=== PATIENT | female | born 2000 | race Caucasian/White ===

== ENCOUNTER 2023-08-03 03:39 | Emergency (ER) | payer OTHER ==
[2023-08-03] MEDS ORDERED: SODIUM CHLORIDE 0.9% IVPB SCH (05:15)
[2023-08-03] MEDS ORDERED: Lactated Ringer's 1,000 ML IV SCH ×2 (05:15→08:15)
[2023-08-03] MEDS ORDERED: DOXYCYCLINE IVPB SCH (05:15)
[2023-08-03] MEDS ORDERED: PROPOFOL 20 ML ONE (05:29)
[2023-08-03] MEDS ORDERED: Midazolam HCl 2 mg/2 ml Vial ONE (05:29)
[2023-08-03] MEDS ORDERED: fentaNYL 50 mcg/mL 1 mL Vial ONE (05:29)
[2023-08-03] MEDS ORDERED: SUCCINYLCHOLINE/SOD CL,ISO/PF 200 MG/10 ML SYRINGE FS ONE (05:31)
[2023-08-03] MEDS ORDERED: Dexamethasone 4 mg/ml Vial ONE (05:31)
[2023-08-03] MEDS ORDERED: Ondansetron PF 4 MG/2 ML Vial ONE (05:31)
[2023-08-03] MEDS ORDERED: Lidocaine 1% PF 5 ML VIAL ONE (05:31)
[2023-08-03] MEDS ORDERED: Rocuronium Bromide 10 MG/ML (10ML VIAL) ONE (05:32)
[2023-08-03] MEDS ORDERED: SUGAMMADEX SODIUM 200 MG/2 ML VIAL ONE (05:32)
[2023-08-03] MEDS ORDERED: Misoprostol 200 MCG TAB ONE (06:15)
[2023-08-03] MEDS ORDERED: Tranexamic Acid 1,000 MG/10 ML VIAL ONE (06:15)
[2023-08-03] MEDS ORDERED: Methylergonovine 0.2 MG/ML VIAL ONE (06:31)
[2023-08-03] MEDS ORDERED: Ibuprofen 400 MG TAB PO PRN (08:09)
[2023-08-03] MEDS ORDERED: HYDROcodone/Acetaminophen 5/325 mg Tablet PO PRN (08:09)
[2023-08-03 09:39] LABS: Hematocrit 25.4 % (34.9-44.5); Hemoglobin 8.9 g/dL (12.0-15.5); Mean Corpuscular Hemoglobin 29.2 pg (27.0-33.0); Mean Corpuscular Volume 83.3 fL (81.6-98.3); Mean Platelet Volume 9.8 fL (7.4-10.4); Platelet Count 247 10x3/uL (150-450); RBC Distribution Width 12.9 % (11.5-14.5); Red Blood Cell (RBC) Count 3.05 10x6/uL (3.90-5.03); White Blood Cell (WBC) Count 7.5 10x3/uL (3.5-10.5)
== END 2023-08-03 11:00 | disposition home or self-care (01) ==
LOC: CSHERS 03:39
DX: O03.4 Incomplete spontaneous abortion without complication (principal); R42 Dizziness and giddiness; Z87.891 Personal history of nicotine dependence
CPT/HCPCS: 36415; 76830; 76856; 80053; 84702; 85025; 86850; 86900; 86901; 88305; 96372; 96374; 96375; J1100; J1885; J2210; J2250; J2405; J2704; J3010; J7120

== ENCOUNTER 2024-09-28 21:51 | Day surgery (SDC) | payer OTHER ==
[2024-09-28 22:19] VITALS: BMI 31.6
[2024-09-28] MEDS ORDERED: hydrALAZINE 20 MG/ML VIAL SLOW IVP PRN (22:29)
[2024-09-29] MEDS: Acetaminophen 500 MG TAB PO SCH (00:41)
== END 2024-09-29 00:47 | disposition home or self-care (01) ==
LOC: CSHLD/OP 21:51
PROVIDERS: ATTEND Obstetrics & Gynecology
DX: O47.1 False labor at or after 37 completed weeks of gestation (principal); Z3A.38 38 weeks gestation of pregnancy; Z90.49 Acquired absence of other specified parts of digestive tract; Z79.899 Other long term (current) drug therapy
CPT/HCPCS: 99284